=== PATIENT | female | born 1975 | race Caucasian/White ===

== ENCOUNTER 2017-09-04 16:18 | Emergency (ER) | payer OTHER ==
[~2017-09-04] VITALS: Ht 170.2 cm; Wt 144.0 kg
[2017-09-04 16:21] VITALS: TEMP 36.5; Ht 170.2 cm; Wt 144.0 kg
[2017-09-04 16:33] VITALS: O2SAT 99
[2017-09-04] MEDS ORDERED: ASPIRIN 81 MG CHEW PO STA (16:38)
[2017-09-04 16:48] LABS: BASO % 0.6 %; BASO ABS # 0.05 K/uL (0-0.2); EOS % 3.5 %; HEMATOCRIT 37.5 % (37-47); HEMOGLOBIN 11.8 g/dL (12.0-16.0); IG# 0.02 K/uL (0.00-0.02); LYMPH % 28.4 %; LYMPH ABS # 2.45 K/uL (1.2-3.4); MEAN CELL VOLUME 76.2 fL (80-100); MEAN CORPUSCULAR HGB CONC 31.5 g/dl (32-36); MEAN PLATELET VOLUME 9.8 fL (7.4-10.4); MONO % 6.4 %; MONO ABS # 0.55 K/uL (0.11-0.59); NEUT % 60.9 %; NEUT ABS # 5.25 K/uL (1.4-6.5); PLATELET COUNT 311 K/uL (130-400); RED CELL DISTRIBUTION WIDTH CV 17.6 % (11.5-14.5); RED CELL DISTRIBUTION WIDTH SD 49.2 fL (36.4-46.3); WHITE BLOOD COUNT 8.62 K/uL (4.8-10.8)
[2017-09-04 16:57] LABS: INR 0.9 (0.9-1.1); PTT PATIENT 28.5 SECONDS (21.0-31.0)
[2017-09-04 17:07] LABS: ALBUMIN 3.5 gm/dl (3.4-5.0); ALT/SGPT 15 U/L (12-78); BLOOD UREA NITROGEN 11 mg/dl (7-18); CARBON DIOXIDE 27 mmol/L (21-32); CREATININE 0.93 mg/dl (0.60-1.20); GLUCOSE 97 mg/dl (70-99); LIPASE 73 U/L (73-393); POTASSIUM 3.7 mmol/L (3.5-5.1); SODIUM 138 mmol/L (136-145)
[2017-09-04 17:10] LABS: ALKALINE PHOSPHATASE 107 U/L (45-117); AST/SGOT 8 U/L (15-37); TOTAL PROTEIN 7.5 gm/dl (6.4-8.2)
--- NOTE | 2017-09-04 17:12 | EMERGENCY ROOM VISIT NOTE ---
ED Visit Note First contact with patient: 16:26 CHIEF COMPLAINT: Chest pain HISTORY OF PRESENTING ILLNESS: This is a 42-year-old female who presents to the emergency department by private vehicle with complaint of chest pain. The patient states that she started to have some upper back pain about 3 days ago, states between her shoulder blades and radiating out to both sides. Today while she was at work she started to have some left-sided chest pain that radiates into her left arm. She states the chest pain started about 9 AM, has been constant, describes it as "weird" and achy, worse with some movement, nothing makes it better, rates as 1/10. She states she has not tried any over- the-counter medications for her pain because she does not like to take medicine. She states 2 days ago that she had some pain on the right side of her chest which went away. She has some associated nausea but no vomiting, denies shortness of breath, dizziness or lightheadedness, diaphoresis, or syncope. She denies any leg pain or swelling, recent immobilization, or history of blood clots. She denies any abdominal pain, changes in stool, urinary symptoms, rash, fevers or chills, headache, neck pain, or vision changes. She does have a family history of heart disease, including her father and paternal aunt who have had significant coronary artery disease starting in their late 60s, and her mother who has hypertension. She denies any personal history of heart disease. She states "the only reason I am here is because my coworkers kept telling me to go get checked." REVIEW OF SYSTEMS: A complete 10 point review of systems was reviewed with the patient with pertinent positives and negatives as per history of present illness. All else were negative. PAST MEDICAL HISTORY: She reports cholecystectomy in 2017, no other significant medical or surgical history. SOCIAL HISTORY: Lives at home with family. She is a current every day smoker, she denies alcohol and recreational drug use. ALLERGIES: No known allergies. PHYSICAL EXAM: CONSTITUTIONAL: Pleasant and cooperative. No acute distress. Obese. Well appearing and well nourished. HEENT: Normocephalic, atraumatic. Pupils equal, round and reactive to light, EOMI. TMs normal. Pharynx normal. NECK: Supple, full active range of motion without discomfort. RESPIRATORY: Clear to auscultation bilaterally with no wheezing, crackles, rhonchi or stridor. Equal expansion bilaterally. CARDIOVASCULAR: Regular rate and rhythm with no murmurs, rubs or gallops. Normal peripheral perfusion. No edema. GASTROINTESTINAL: Soft, nontender, nondistended. No palpable masses or HSM. Bowel sounds present in all quadrants. MUSCULOSKELETAL: Full range of motion of all joints without discomfort. No calf swelling or tenderness to palpation bilaterally. INTEGUMENTARY: No rash or other significant dermatologic conditions noted. NEUROLOGIC: Alert and oriented X 4 with normal affect. Cranial nerves II-XII grossly intact. No focal neurologic deficits noted. Normal strength and sensation all 4 extremities. Normal speech. Normal gait observed. ED COURSE AND MEDICAL DECISION MAKING: CC: Patient presenting with complaint of upper back and chest pain DIFFERENTIAL DIAGNOSIS: Includes, but not limited to acute coronary syndrome, pulmonary embolism, aortic dissection, pneumothorax, pericarditis, anxiety, musculoskeletal pain, GERD, costochondritis, pneumonia, among others. INTERPRETATION OF LABS: No leukocytosis, no anemia, no significant electrolyte abnormalities, normal renal function, normal liver enzymes and lipase. Troponin negative 2 after greater than 6 hours of chest pain. Coagulation factors within normal limits. IMAGING: CHEST 2 VIEWS ROUTINE HISTORY: 42 years-old Female CHEST PAIN acute atypical chest pain COMPARISON: None available TECHNIQUE: PA and lateral views of the chest FINDINGS: Cardiomediastinal and hilar silhouettes are within normal limits. There is no pneumothorax, pleural effusion, focal airspace consolidation or overt pulmonary edema. Bones of the chest appear grossly intact. Surgical clips of the right upper abdomen suggest prior cholecystectomy. IMPRESSION: No acute process. EKG: Shows normal sinus rhythm with a rate of 76 bpm, no ectopy and no ST or T- wave changes noted by my interpretation. No previous EKG available for comparison. MEDICATION RECONCILIATION: I attest that I have personally reviewed the patient 's current medication list. INITIAL VITAL SIGNS REVIEW: I reviewed the patient's initial vital signs and interpret them as follows: T: Afebrile; BP: Hypertensive; HR: Within normal limit; RR: Within normal; Pulse Ox: Within normal limits on room air. Blood pressure screening: The patient was found to have an elevated blood pressure and was referred to their primary doctor for recheck and further treatment. SUMMARY: Patient was evaluated at bedside, history and physical exam performed. Patient is alert and oriented, no acute distress, resting calmly in stretcher. Patient complaining of mild left chest and upper back pain, this is reducible with palpation and some movement of the arm. Her back pain has been ongoing for a few days, and her chest pain has been constant for more than 6 hours. Patient symptoms do seem consistent with a musculoskeletal pain, she is low risk for both ACS and PE, heart score of 2 and Wells score of 0. EKG reviewed at bedside noting normal sinus rhythm with no acute ischemic changes. Orders were placed at bedside for labs, chest x-ray to evaluate for cardiopulmonary disease. Patient discussed with Dr. Parker, who agrees with my assessment and plan. Labs and imaging reviewed as above, unremarkable. Initial and 90 minute troponin are both negative after greater than 6 hours of chest pain. I do feel that the patient's symptoms are most consistent with musculoskeletal pain. Patient reassessed multiple times throughout ED stay, she states that her pain is about the same, slightly improved after receiving aspirin. Patient was updated on all results and plan for discharge, she was encouraged to follow closely with her primary care provider for further management. Patient was also given strict return precautions should her symptoms worsen, she verbalized understanding. Patient was discharged home in stable condition and ambulatory. Current/Historical Medications No Active Prescriptions or Reported Meds Allergies Coded Allergies: Blueberry (Unverified Allergy, Severe, NUMB TONGUE, HEAD TO TOE BLISTERS, 09/04/17) Blueberry Flavor (Unverified Allergy, Severe, NUMB TONGUE, HEAD TO TOE BLISTERS, 09/04/17) [place] (Unverified Allergy, Severe, BURN, BLISTER, 09/04/17) Vital Signs Date Time Temp Pulse Resp B/P (MAP) Pulse Ox O2 Delivery O2 Flow Rate FiO2 09/04/17 19:11 71 20 141/88 99 09/04/17 17:55 77 18 149/94 100 Room Air 09/04/17 16:55 75 09/04/17 16:33 99 Room Air 09/04/17 16:21 36.5 78 18 149/92 97 Room Air Laboratory Results 09/04/17 16:33 Red Blood Count 4.92, Mean Corpuscular Volume 76.2, Mean Corpuscular Hemoglobin 24.0, Mean Corpuscular Hemoglobin Concent 31.5, Mean Platelet Volume 9.8, Neutrophils (%) (Auto) 60.9, Lymphocytes (%) (Auto) 28.4, Monocytes (%) (Auto) 6.4, Eosinophils (%) (Auto) 3.5, Basophils (%) (Auto) 0.6, Neutrophils # (Auto) 5.25, Lymphocytes # (Auto) 2.45, Monocytes # (Auto) 0.55, Eosinophils # (Auto) 0.30, Basophils # (Auto) 0.05 09/04/17 16:33 Test 09/04/17 16:33 09/04/17 18:00 White Blood Count 8.62 K/uL (4.8-10.8) Red Blood Count 4.92 M/uL (4.2-5.4) Hemoglobin 11.8 g/dL (12.0-16.0) Hematocrit 37.5 % (37-47) Mean Corpuscular Volume 76.2 fL (80-100) Mean Corpuscular Hemoglobin 24.0 pg (25-34) Mean Corpuscular Hemoglobin Concent 31.5 g/dl (32-36) Platelet Count 311 K/uL (130-400) Mean Platelet Volume 9.8 fL (7.4-10.4) Neutrophils (%) (Auto) 60.9 % Lymphocytes (%) (Auto) 28.4 % Monocytes (%) (Auto) 6.4 % Eosinophils (%) (Auto) 3.5 % Basophils (%) (Auto) 0.6 % Neutrophils # (Auto) 5.25 K/uL (1.4-6.5) Lymphocytes # (Auto) 2.45 K/uL (1.2-3.4) Monocytes # (Auto) 0.55 K/uL (0.11-0.59) Eosinophils # (Auto) 0.30 K/uL (0-0.5) Basophils # (Auto) 0.05 K/uL (0-0.2) RDW Standard Deviation 49.2 fL (36.4-46.3) RDW Coefficient of Variation 17.6 % (11.5-14.5) Immature Granulocyte % (Auto) 0.2 % Immature Granulocyte # (Auto) 0.02 K/uL (0.00-0.02) Prothrombin Time 9.7 SECONDS (9.0-12.0) Prothromb Time International Ratio 0.9 (0.9-1.1) Activated Partial Thromboplast Time 28.5 SECONDS (21.0-31.0) Partial Thromboplastin Ratio 1.1 Anion Gap 6.0 mmol/L (3-11) Est Creatinine Clear Calc Drug Dose 118.8 ml/min Estimated GFR () 88.5 Estimated GFR (Non- 76.3 BUN/Creatinine Ratio 11.5 (10-20) Calcium Level 9.0 mg/dl (8.5-10.1) Total Bilirubin 0.3 mg/dl (0.2-1) Direct Bilirubin < 0.1 mg/dl (0-0.2) Aspartate Amino Transf (AST/SGOT) 8 U/L (15-37) Alanine Aminotransferase (ALT/SGPT) 15 U/L (12-78) Alkaline Phosphatase 107 U/L (45-117) Total Protein 7.5 gm/dl (6.4-8.2) Albumin 3.5 gm/dl (3.4-5.0) Lipase 73 U/L (73-393) Troponin I < 0.015 ng/ml (0-0.045) Departure Information Impression Primary Impression: Chest wall pain Dispostion Home / Self-Care Condition GOOD Prescriptions No Active Prescriptions or Reported Meds Referrals No Doctor, Assigned (PCP) Patient Instructions [facility] Additional Instructions You have been treated in the Emergency Department your back and chest pain. Laboratory results and imaging studies have ruled out any emergent causes for your symptoms which would warrant admission or surgery. For pain control, you can use the following [id number] medicines (if >12 yo): - Regular strength (325mg/tab) Tylenol (acetaminophen) 2 tabs every 4-6 hours as needed. Do not exceed 10 tablets in a 24 hour period. Avoid taking more than 3000 mg of Tylenol per day. This includes any other sources of acetaminophen you may take on a regular basis. - Regular strength (200 mg/tab) Advil (ibuprofen) 3 tabs every 6-8 hours as needed. Do not exceed a dose of 2400 mg per day. Drink plenty of fluids to stay well hydrated. As with any trip to the Emergency Department, you should follow-up with your Primary Care Provider from today's visit. Return to the emergency department for severe worsening chest or back pain, shortness of breath, worsening nausea/vomiting, vomiting or coughing up blood, fevers > 101.5, severe dizziness or passing out, or any other concerns. Work Instructions Return To Work: 2 days
--- NOTE | 2017-09-04 17:37 | DIAGNOSTIC IMAGING REPORT ---
CHEST 2 VIEWS ROUTINE HISTORY: 42 years-old Female CHEST PAIN acute atypical chest pain COMPARISON: None available TECHNIQUE: PA and lateral views of the chest FINDINGS: Cardiomediastinal and hilar silhouettes are within normal limits. There is no pneumothorax, pleural effusion, focal airspace consolidation or overt pulmonary edema. Bones of the chest appear grossly intact. Surgical clips of the right upper abdomen suggest prior cholecystectomy. IMPRESSION: No acute process. The above report was generated using voice recognition software. It may contain grammatical, syntax or spelling errors. Electronically signed by: Jewel Kaur M.D. 09/04/2017 5:35 PM Dictated Date/Time: 09/04/2017 5:34 PM
[2017-09-04 19:11] VITALS: BP 141/88; PULSE 71; O2SAT 99
== END 2017-09-04 19:12 | disposition home or self-care (01) ==
LOC: C.EDB 16:21 → C.EDC 19:12
DX: R07.89 Other chest pain (principal); M54.6 Pain in thoracic spine; F17.200 Nicotine dependence, unspecified, uncomplicated; Z91.018 Allergy to other foods; Z82.49 Family history of ischemic heart disease and other diseases of the circulatory system